=== PATIENT | male | born 1970 | race Caucasian/White ===

== ENCOUNTER → 2017-01-27 | Outpatient (CLI) | payer BC ==
--- NOTE | 2017-01-27 18:45 | DI ---
EXAM: MRI HAND RIGHT W/O CONTRAST COMPARISON: None available. HISTORY: ITS.REASON: M79.641 PAIN IN RIGHT HAND; R22.31 Localized swelling, mass and l . Right middle finger swelling and pain for three weeks. No known injury. Technique: Routine sequences are obtained through the right hand in axial, sagittal and coronal planes without IV contrast. FINDINGS: There is a focal ovoid area of subchondral hypointense T1 and hyperintense T2 signal at the slightly anterior aspect of the third metacarpal head. An asymmetric joint effusion is not appreciated. The flexor and extensor tendons are intact and appear relatively unremarkable. No abnormal bone marrow signal changes are otherwise identified. No soft tissue abnormalities are otherwise seen. No ligamentous or tendinous injury is appreciated. IMPRESSION: There is an area of subchondral edema at the third metacarpal head which raises the question of an underlying osteochondral injury. This could be on the spectrum of osteochondritis dissecans or osteonecrosis. Clinical correlation is suggested. CT may be of benefit. LOCATION OF DICTATION: [facility] [place] .
== END ==
LOC: IMA 07:19
PROVIDERS: ATTEND Family Medicine Sports Medicine
DX: R60.0 Localized edema (principal); R93.7 Abnormal findings on diagnostic imaging of other parts of musculoskeletal system; M79.641 Pain in right hand